=== PATIENT | male | born 1995 | race Native Hawaiian/Other Pacific Islander ===

== ENCOUNTER 2017-05-19 11:43 | Emergency (ER) | payer BC ==
[~2017-05-19] VITALS: Ht 165.1 cm; Wt 74.8 kg
--- NOTE | 2017-05-19 12:09 | NUR ---
PT IS IN ROOM #2A. DR PONCE EVALUATED THE PT.
--- NOTE | 2017-05-19 13:52 | NUR ---
Patient discharged to home in stable conditon. Written and verbal after care instructions given to patient and mother. Patient and mother verbalized understanding of instructions.
== END 2017-05-19 13:53 | disposition home or self-care (01) ==
LOC: ER 11:43
DX: R04.0 Epistaxis (principal)
CPT/HCPCS: 99281; A4663